=== PATIENT | male | born 1980 | race Caucasian/White ===

== ENCOUNTER 2016-09-27 12:41 | Outpatient (CLI) | payer OTHER ==
[2016-09-27 22:48] LABS: Cardiac Risk 4.5 (Less than 4.5)
== END 2016-09-27 12:42 | disposition home or self-care (01) ==
LOC: NAVSJIPCSP 12:41
PROVIDERS: ATTEND Internal Medicine
DX: E78.5 Hyperlipidemia, unspecified (principal)
CPT/HCPCS: 80061